=== PATIENT | female | born 1990 ===

== ENCOUNTER 2024-08-16 08:35 | Outpatient (CLI) | payer OTHER, SELFPAY ==
--- NOTE | 2024-08-16 08:44 | XR_ITS ---
WS: [id number] Right knee, 3 views, 08/16/2024 Clinical Data: RIGHT KNEE PAIN Comparison: None. Findings: No fractures or dislocations are seen. The joint spaces are normal. The patella is intact. The soft t issues are unremarkable. XR/XR knee RT 3V* [id number] Impression: Negative right knee. Kellgren-Reji Classification: grade 0 (none): definite absence of x-ray diane nges of osteoarthritis
== END 2024-08-16 08:36 | disposition home or self-care (01) ==
LOC: RAD 08:38
PROVIDERS: Visit Provider Chiropractor
DX: M25.561 Pain in right knee (principal)
CPT/HCPCS: 73562